=== PATIENT | female | born 1935 | race Hispanic/Latino ===

== ENCOUNTER 2020-05-29 10:35 | Inpatient (IN) | payer MEDICARE, SELFPAY ==
[~2020-05-29] VITALS: Ht 149.9 cm; Wt 40.4 kg
[2020-05-29 11:06] LABS: APPEARANCE,URINE Cloudy (CLEAR); BILIRUBIN,URINE Small (NEGATIVE); COLOR,URINE Dark Yellow (YELLOW); GLUCOSE, URINE (UA) Negative (NEGATIVE); KETONES,URINE Trace mg/dL (NEGATIVE); LEUKOCYTE ESTERASE ,URINE Large (NEGATIVE); NITRATE,URINE Negative (NEGATIVE); OCCULT BLOOD,URINE Negative (NEGATIVE); PH,URINE 5.5 (5.0-8.0); PROTEIN,URINE Trace mg/dL (NEGATIVE)
[2020-05-29 11:10] LABS: BASOPHILS % (AUTO) 0.4 % (0.0-5.0); EOSINOPHILS % (AUTO) 0.3 % (0.0-8.0); HEMATOCRIT 41.8 % (36-48); LYMPHOCYTES % (AUTO) 8.7 % (21.0-51.0); MEAN CORPUSCULAR HEMOGLOBIN 26.5 pg (27.0-33.0); MEAN CORPUSCULAR HGB CONC 31.3 g/dL (32.0-36.0); MEAN CORPUSCULAR VOLUME 84.6 fL (79-99); MONOCYTES % (AUTO) 9.7 % (3.0-13.0); NEUTROPHILS % (AUTO) 80.5 % (40.0-77.0); PLATELET COUNT (AUTO) 272 K/uL (130-400); RED BLOOD CELL COUNT(AUTO) 4.94 MIL/uL (4.00-5.50); RED CELL DISTRIBUTION WIDTH 13.3 % (11.0-15.5); WHITE BLOOD COUNT (AUTO) 7.8 K/uL (4.8-10.8)
[2020-05-29] MEDS ORDERED: 0.9%NACL 1000ML 1,000 ML IV ONE (11:10)
[2020-05-29 11:20] LABS: CREATININE 0.7 mg/dL (0.5-1.5); POTASSIUM 3.2 mmol/L (3.5-5.1)
[2020-05-29 11:25] LABS: BACTERIA,URINE Moderate /HPF (None Seen); BILIRUBIN,TOTAL 0.6 mg/dL (0.2-1.0); TOTAL PROTEIN, SERUM 8.7 g/dL (6.0-8.3)
[2020-05-29] MEDS ORDERED: POTASSIUM CHLORIDE 10% ELIXIR 20 MEQ/15 ML UDCUP PO SCH (17:15)
[2020-05-29] MEDS: CEFTRIAXONE 1G VIAL IVP SCH (17:15)
[2020-05-29] MEDS ORDERED: ACETAMINOPHEN 325 MG/10.15ML UDCUP PO PRN (17:15)
[2020-05-29] MEDS ORDERED: ONDANSETRON 4MG INJ IVP PRN (17:15)
[2020-05-29] MEDS ORDERED: CLONIDINE HCL 0.2 MG TABLET PO ONE (17:35)
[2020-05-29] MEDS ORDERED: CEFTRIAXONE 1G VIAL ONE (17:35)
[2020-05-29] MEDS ORDERED: CLONIDINE 0.1 MG/ 24 HR PATCH TD SCH (17:45)
[2020-05-29] MEDS: 0.9%NACL 1000ML 1,000 ML IV SCH (18:00)
[2020-05-29] MEDS ORDERED: METOPROLOL TARTRATE 1 MG/ML 5ML VIAL IV ONE (18:10)
[2020-05-29 19:00] VITALS: BP 188/113
[2020-05-29 21:00] VITALS: BP 188/113
[2020-05-29] MEDS: FAMOTIDINE 20MG VIAL IV SCH (21:00)
[2020-05-29] MEDS: CLONIDINE HCL 0.2 MG TABLET PO SCH (21:00)
[2020-05-29] MEDS ORDERED: LEVE100S7 PO (21:53)
[2020-05-29] MEDS ORDERED: CLON0.2T PO (21:53)
[2020-05-29] MEDS ORDERED: LEVO50TA4 PO (21:53)
[2020-05-29] MEDS ORDERED: BRIM5DRO OP (21:53)
[2020-05-29] MEDS ORDERED: LATA2.5D14 OP (21:53)
[2020-05-29] MEDS ORDERED: PRED5DRO25 OP (22:41)
[2020-05-29] MEDS: METOPROLOL TARTRATE 1 MG/ML 5ML VIAL IV PRN (22:44)
[2020-05-30] VITALS (9 sets, daily range): BP systolic 152–196; BP diastolic 94–116
[2020-05-30] MEDS: METOPROLOL TARTRATE 1 MG/ML 5ML VIAL IV PRN (03:11)
[2020-05-30] MEDS ORDERED: LABETALOL 20MG SYG IV ONE (04:23)
[2020-05-30] MEDS ORDERED: LABETALOL 20MG SYG IV SCH (04:30)
[2020-05-30] MEDS: LEVOTHYROXINE 50 MCG TABLET PO SCH (05:02)
[2020-05-30 05:13] LABS: BASOPHILS % (AUTO) 0.3 % (0.0-5.0); HEMATOCRIT 41.5 % (36-48); LYMPHOCYTES % (AUTO) 4.6 % (21.0-51.0); MEAN CORPUSCULAR HGB CONC 31.6 g/dL (32.0-36.0); MEAN CORPUSCULAR VOLUME 82.5 fL (79-99); MONOCYTES % (AUTO) 9.1 % (3.0-13.0); NEUTROPHILS % (AUTO) 85.6 % (40.0-77.0); PLATELET COUNT (AUTO) 225 K/uL (130-400); RED BLOOD CELL COUNT(AUTO) 5.03 MIL/uL (4.00-5.50); RED CELL DISTRIBUTION WIDTH 13.2 % (11.0-15.5); WHITE BLOOD COUNT (AUTO) 7.6 K/uL (4.8-10.8)
[2020-05-30 05:25] LABS: CREATININE 0.5 mg/dL (0.5-1.5)
[2020-05-30] MEDS: FAMOTIDINE 20MG VIAL IV SCH ×2 (07:50→22:07)
[2020-05-30] MEDS: LABETALOL 20MG SYG IV PRN ×2 (07:55→16:03)
[2020-05-30] MEDS: CLONIDINE HCL 0.2 MG TABLET PO SCH ×3 (08:09→21:00)
[2020-05-30] MEDS ORDERED: HYDRALAZINE 20MG/ML VIAL IV PRN (08:15)
[2020-05-30] MEDS ORDERED: LEVETIRACETAM 500 MG PO SCH (09:00)
[2020-05-30] MEDS: LEVETIRACETAM 500 MG in 0.9%NACL 100ML 100 ML IV SCH ×2 (10:33→22:06)
[2020-05-30] MEDS ORDERED: COMPOUND IV MISC 1 EACH IVSOLN MISC PRN (11:00)
[2020-05-30] MEDS ORDERED: LIDOCAINE HCL-MPF 1% 2ML VIAL IV PRN (13:45)
[2020-05-30] MEDS: POTASSIUM CHLORIDE 10MEQ/100ML 100 ML IV PRN ×2 (14:33→16:13)
[2020-05-30] MEDS: 0.9%NACL 1000ML 1,000 ML IV SCH (14:41)
[2020-05-30] MEDS: CEFTRIAXONE 1G VIAL IVP SCH (16:20)
[2020-05-30] MEDS ORDERED: KCL 20 MEQ ERTAB PO PRN (21:45)
[2020-05-30] MEDS ORDERED: POTASSIUM CHLORIDE 20MEQ/100ML 100 ML IV PRN (21:45)
[2020-05-30] MEDS: POTASSIUM CHLORIDE 20MEQ/100ML 100 ML IV PRN (22:07)
[2020-05-31] VITALS (7 sets, daily range): BP systolic 132–196; BP diastolic 80–107
[2020-05-31] MEDS: METOPROLOL TARTRATE 1 MG/ML 5ML VIAL IV PRN (02:54)
[2020-05-31 04:26] LABS: BASOPHILS % (AUTO) 0.1 % (0.0-5.0); HEMATOCRIT 39.8 % (36-48); LYMPHOCYTES % (AUTO) 4.4 % (21.0-51.0); MEAN CORPUSCULAR HEMOGLOBIN 26.3 pg (27.0-33.0); MEAN CORPUSCULAR HGB CONC 31.4 g/dL (32.0-36.0); MEAN CORPUSCULAR VOLUME 83.8 fL (79-99); MONOCYTES % (AUTO) 11.7 % (3.0-13.0); NEUTROPHILS % (AUTO) 83.3 % (40.0-77.0); PLATELET COUNT (AUTO) 200 K/uL (130-400); RED BLOOD CELL COUNT(AUTO) 4.75 MIL/uL (4.00-5.50); RED CELL DISTRIBUTION WIDTH 13.3 % (11.0-15.5); WHITE BLOOD COUNT (AUTO) 11.1 K/uL (4.8-10.8)
[2020-05-31] MEDS: LABETALOL 20MG SYG IV PRN ×2 (04:35→23:43)
[2020-05-31 04:41] LABS: CREATININE 0.8 mg/dL (0.5-1.5); POTASSIUM 4.5 mmol/L (3.5-5.1)
[2020-05-31] MEDS: LEVOTHYROXINE 50 MCG TABLET PO SCH (05:59)
[2020-05-31] MEDS: CLONIDINE HCL 0.2 MG TABLET PO SCH ×3 (09:00→21:00)
[2020-05-31] MEDS: 0.9%NACL 1000ML 1,000 ML IV SCH (10:00)
[2020-05-31] MEDS ORDERED: PROP1DRO OP (11:39)
[2020-05-31] MEDS: LEVETIRACETAM 500 MG in 0.9%NACL 100ML 100 ML IV SCH ×2 (11:42→20:59)
[2020-05-31] MEDS: FAMOTIDINE 20MG VIAL IV SCH ×2 (11:47→21:00)
[2020-05-31] MEDS: CEFTRIAXONE 1G VIAL IVP SCH (18:03)
[2020-05-31] MEDS: PREDNISOLONE 1% DROPS OP SCH (18:04)
[2020-05-31] MEDS ORDERED: MORPHINE 2 MG SYG IVP PRN (20:15)
[2020-05-31] MEDS ORDERED: HYDROMORPHONE 1 MG INJ IVP PRN (20:15)
[2020-06-01] VITALS (7 sets, daily range): BP systolic 138–196; BP diastolic 61–115
[2020-06-01] MEDS: 0.9%NACL 1000ML 1,000 ML IV SCH (06:00)
[2020-06-01] MEDS: LEVOTHYROXINE 50 MCG TABLET PO SCH (06:30)
[2020-06-01] MEDS: CLONIDINE HCL 0.2 MG TABLET PO SCH (09:00)
[2020-06-01] MEDS: LEVETIRACETAM 500 MG in 0.9%NACL 100ML 100 ML IV SCH ×2 (10:02→21:11)
[2020-06-01] MEDS: FAMOTIDINE 20MG VIAL IV SCH ×2 (10:02→21:10)
[2020-06-01] MEDS: LABETALOL 20MG SYG IV PRN (10:03)
[2020-06-01] MEDS ORDERED: CLONIDINE 0.1 MG/ 24 HR PATCH TD SCH (14:45)
[2020-06-01 15:19] LABS: HEMATOCRIT 38.5 % (36-48); MEAN CORPUSCULAR HEMOGLOBIN 26.2 pg (27.0-33.0); MEAN CORPUSCULAR HGB CONC 30.1 g/dL (32.0-36.0); MEAN CORPUSCULAR VOLUME 87.1 fL (79-99); PLATELET COUNT (AUTO) 229 K/uL (130-400); RED BLOOD CELL COUNT(AUTO) 4.42 MIL/uL (4.00-5.50); RED CELL DISTRIBUTION WIDTH 13.6 % (11.0-15.5); WHITE BLOOD COUNT (AUTO) 7.3 K/uL (4.8-10.8)
[2020-06-01 15:33] LABS: CREATININE 0.6 mg/dL (0.5-1.5); POTASSIUM 3.1 mmol/L (3.5-5.1)
[2020-06-01] MEDS: PREDNISOLONE 1% DROPS OP SCH (17:00)
[2020-06-01] MEDS: POTASSIUM CHLORIDE 20MEQ/100ML 100 ML IV PRN (18:02)
[2020-06-01] MEDS: CEFTRIAXONE 1G VIAL IVP SCH (18:02)
[2020-06-02] MEDS: 0.9%NACL 1000ML 1,000 ML IV SCH ×2 (02:00→22:00)
[2020-06-02 04:24] VITALS: BP 169/55
[2020-06-02] MEDS: LEVOTHYROXINE 50 MCG TABLET PO SCH (05:58)
[2020-06-02 08:16] VITALS: BP 167/75
[2020-06-02] MEDS ORDERED: LACTULOSE 20 GM/30 ML UDCUP NG PRN (09:00)
[2020-06-02 09:22] LABS: CREATININE 0.6 mg/dL (0.5-1.5); POTASSIUM 3.1 mmol/L (3.5-5.1)
[2020-06-02] MEDS: POTASSIUM CHLORIDE 10% ELIXIR 20 MEQ/15 ML UDCUP PO PRN ×2 (10:35→15:21)
[2020-06-02] MEDS: LEVETIRACETAM 500 MG in 0.9%NACL 100ML 100 ML IV SCH ×2 (10:35→20:47)
[2020-06-02] MEDS: FAMOTIDINE 20MG VIAL IV SCH ×2 (10:36→20:47)
[2020-06-02 12:03] VITALS: BP 161/74
[2020-06-02 16:55] VITALS: BP 172/73
[2020-06-02] MEDS: PREDNISOLONE 1% DROPS OP SCH (17:00)
[2020-06-02] MEDS: CEFTRIAXONE 1G VIAL IVP SCH (17:15)
[2020-06-02 19:00] VITALS: BP 168/91
[2020-06-03] VITALS: BP 176/100
[2020-06-03] MEDS: LABETALOL 20MG SYG IV PRN (01:17)
[2020-06-03 04:00] VITALS: BP 152/83
[2020-06-03] MEDS: LEVOTHYROXINE 50 MCG TABLET PO SCH (06:27)
[2020-06-03 08:37] VITALS: BP 153/79
[2020-06-03] MEDS: FAMOTIDINE 20MG VIAL IV SCH (09:30)
[2020-06-03] MEDS: LEVETIRACETAM 500 MG in 0.9%NACL 100ML 100 ML IV SCH (09:30)
[2020-06-03 11:44] VITALS: BP 166/88
[2020-06-03 16:30] VITALS: BP 172/76
[2020-06-03] MEDS: CEFTRIAXONE 1G VIAL IVP SCH (17:04)
[2020-06-03] MEDS: PREDNISOLONE 1% DROPS OP SCH (17:04)
[2020-06-03] MEDS: 0.9%NACL 1000ML 1,000 ML IV SCH (17:05)
== END 2020-06-03 20:31 | DRG 689 ==
LOC: EDH 10:35 → EDHIP 17:05 → 4BH 21:00
PROVIDERS: ADMIT Internal Medicine; ATTEND Internal Medicine
PROC: 5A0935A Assistance with Respiratory Ventilation, Less than 24 Consecutive Hours, High Flow/Velocity Cannula (ICD-10-PCS; principal; 2020-05-31)
DX: N39.0 Urinary tract infection, site not specified (principal); J96.01 Acute respiratory failure with hypoxia; R64 Cachexia; Z68.1 Body mass index [BMI] 19.9 or less, adult; E86.0 Dehydration; E87.6 Hypokalemia; Z66 Do not resuscitate; E03.9 Hypothyroidism, unspecified; I11.9 Hypertensive heart disease without heart failure; R62.7 Adult failure to thrive; G40.909 Epilepsy, unspecified, not intractable, without status epilepticus; Z51.5 Encounter for palliative care; Z99.3 Dependence on wheelchair; Z94.7 Corneal transplant status
CPT/HCPCS: 36415; 71045; 74018; 80048; 80053; 81001; 82948; 85025; 85027; 87077; 87088; 87186; 92526; 92610; 93005; G0378; J0360; J0696; J1170; J1953; J3480; J3490; J7030; J7510